=== PATIENT | male | born 1940 | race Caucasian/White ===

== ENCOUNTER 2018-08-07 10:19 | Outpatient (CLI) | payer MEDICARE ==
[2018-08-07 11:19] LABS: Estimated GFR-MDRD - POC Greater than 90
--- NOTE | 2018-08-07 12:20 | CT ---
CT Abdomen Pelvis W WO con: 08/07/2018 12:00 AM CLINICAL HISTORY: Hematuria. TECHNIQUE: Multiple contiguous axial images were obtained and a CT of the abdomen and pelvis without and with IV contrast. Postcontrast images were obtained in the nephrographic and excretory phases. Sagittal and coronal reformats were performed. COMPARISON: None. FINDINGS: Kidneys and Urinary Tract: Right kidney and ureter: No calculi. No hydronephrosis or hydroureter. No renal mass or other lesions . No urothelial lesions: no filling defect, dilation, stricture or wall thickening. Left kidney and ureter: No calculi. No hydronephrosis or hydroureter. No renal mass or other lesions. No urothelial lesions: no filling defect, dilation, stricture or wall thickening. Urinary bladder: Normal, no calculi, mass or other lesions. Remainder of Abdomen and Pelvis: Liver: Normal. Gallbladder and biliary system: Normal. No CT evident gallstones. No biliary ductal dilatation. Spleen: Normal. Pancreas: Normal. Adrenal glands: Normal. GI tract: Scattered diverticula in the colon. The small bowel is normal. Abdominal aorta and its major branches: Atherosclerotic calcifications. No aneurysm. Peritoneum/retroperitoneum: Normal. No ascites. No adenopathy. Pelvic structures: Normal. No pelvic lymphadenopathy. Body wall and musculoskeletal: Degenerative changes in the spine. Visualized lower thorax: Normal. No pulmonary parenchymal mass or pleural effusion. IMPRESSION: 1. Negative CT Urogram. No etiology identified for hematuria. 2. Diverticulosis
[2018-08-07] MEDS ORDERED: ISOVUE-370 76%-LOCM 1 ML ONE (13:43)
== END 2018-08-07 10:20 | disposition home or self-care (01) ==
LOC: BICCT 10:19
PROVIDERS: ATTEND Urology
DX: R31.9 Hematuria, unspecified (principal); K57.90 Diverticulosis of intestine, part unspecified, without perforation or abscess without bleeding
CPT/HCPCS: 74178; 82565; Q9966

== ENCOUNTER 2020-01-21 07:57 | Outpatient (CLI) | payer MEDICARE, OTHER ==
[2020-01-21 14:24] LABS: #Eosinphils 0.2 thou/uL (0.0-0.7); #Lymphocytes 1.8 thou/uL (1.20-3.40); #Monocytes 0.7 thou/uL (0.11-0.59); #Neutrophils 4.5 thou/uL (1.40-6.50); %Basophils 0.1 % (0.0-1.0); %Eosinophils 3.1 % (0.0-10.0); %Lymphocytes 24.6 % (21.0-51.0); %Monocytes 9.8 % (0.0-10.0); %Neutrophils 62.3 % (42.0-75.0); Hemoglobin 15.2 g/dL (14.0-18.0); Mean Corpuscular HGB CONC 33.7 g/dL (32.0-36.0); Mean Corpuscular Hemoglobin 32.5 pg (27.0-31.0); Mean Corpuscular Volume 96.4 fL (78.0-98.0); Mean Platelet Volume 7.7 fL (7.4-10.4); Platelet Count 241 thou/uL (130-400); RBC Distribution Width 11.8 % (11.5-14.5); Red Blood Cell (RBC) Count 4.67 mill/uL (4.70-6.10); White Blood Cell (WBC) Count 7.3 thou/uL (4.8-10.8)
[2020-01-21 14:43] LABS: Anion Gap 14 mmol/L (10-20); BUN (Urea Nitrogen) 17 mg/dL (8.4-25.7); Calc. Creatinine Clearance 0 mL/min (70-130); Carbon Dioxide 24 mmol/L (23-31); Chloride 107 mmol/L (98-107); Estimated GFR-MDRD 81; Glucose 81 mg/dL (83-110); Potassium 4.9 mmol/L (3.5-5.1); Sodium 140 mmol/L (136-145)
[2020-01-22 13:02] LABS: SARS-CoV-2 MS2 Positive; SARS-CoV-2 N Gene Negative; SARS-CoV-2 S Gene Negative; SARS-CoV-2 by NAA Not Detected (NotDetected); SARS-CoV-2 orf1ab Negative
== END 2020-01-21 07:58 | disposition home or self-care (01) ==
LOC: LABBT 07:57
PROVIDERS: ATTEND Internal Medicine Cardiovascular Disease
DX: Z01.812 Encounter for preprocedural laboratory examination (principal); Z20.828 Contact with and (suspected) exposure to other viral communicable diseases; R93.89 Abnormal findings on diagnostic imaging of other specified body structures
CPT/HCPCS: 80048; 85025; U0003; 87635

== ENCOUNTER 2020-01-24 05:51 | Day surgery (SDC) | payer MEDICARE ==
[2020-01-22 13:46] VITALS: BMI 28.1
[2020-01-24] MEDS ORDERED: Heparin 10,000 UNITS/ 10 ML VIAL ONE (06:27)
[2020-01-24] MEDS ORDERED: Lidocaine 1% (PF) 30 ML VIAL ONE (06:38)
[2020-01-24] MEDS ORDERED: Fentanyl 100 MCG/2 ML VIAL ONE (06:58)
[2020-01-24] MEDS ORDERED: Midazolam HCl 2 mg/2 ml Vial ONE (06:58)
[2020-01-24] MEDS ORDERED: Bivalirudin 250 MG VIAL ONE (07:33)
[2020-01-24] MEDS ORDERED: Clopidogrel Bisulfate 300 MG TAB ONE (07:43)
[2020-01-24] MEDS ORDERED: Morphine 4 MG/ML VIAL SLOW IVP PRN (12:13)
[2020-01-24] MEDS ORDERED: Morphine 2 MG/ML VIAL SLOW IVP PRN (12:13)
[2020-01-24] MEDS ORDERED: Sodium Chloride 0.9% 1,000 ML IV SCH (12:13)
[2020-01-24] MEDS ORDERED: Iopamidol 370 76% 50 ML VIAL FS ONE (14:06)
[2020-01-24] MEDS ORDERED: Iopamidol 370 76% 100 ML VIAL ONE (14:06)
[2020-01-24] MEDS ORDERED: Clopidogrel Bisulfate 75 MG TAB ONE (14:22)
[2020-01-25] MEDS ORDERED: Aspirin Chewable 81 MG TAB PO SCH (09:00)
[2020-01-25] MEDS ORDERED: Clopidogrel Bisulfate 75 MG TAB PO SCH (09:00)
--- NOTE | 2020-01-26 16:08 | EKG ---
Test Reason : POST STENT Blood Pressure : / mmHG Vent. Rate : 049 BPM Atrial Rate : 049 BPM P-R Int : 238 ms QRS Dur : 092 ms QT Int : 448 ms P-R-T Axes : 003 020 046 degrees QTc Int : 404 ms Marked sinus bradycardia with 1st degree A-V block Abnormal ECG No previous ECGs available Confirmed by Nicholas LYNNE ([id number]) on 01/26/2020 4:07:39 PM Referred By: MERON Confirmed By:Nicholas LYNNE
== END 2020-01-24 17:52 | disposition home or self-care (01) ==
LOC: CCL 05:51
PROVIDERS: ATTEND Internal Medicine Cardiovascular Disease
PROC: 027034Z Dilation of Coronary Artery, One Artery with Drug-eluting Intraluminal Device, Percutaneous Approach (ICD-10-PCS; principal; 2020-01-24)
PROC: 4A023N7 Measurement of Cardiac Sampling and Pressure, Left Heart, Percutaneous Approach (ICD-10-PCS; 2020-01-24)
PROC: B2111ZZ Fluoroscopy of Multiple Coronary Arteries using Low Osmolar Contrast (ICD-10-PCS; 2020-01-24)
PROC: B2131ZZ Fluoroscopy of Multiple Coronary Artery Bypass Grafts using Low Osmolar Contrast (ICD-10-PCS; 2020-01-24)
DX: T82.855A Stenosis of coronary artery stent, initial encounter (principal); I25.810 Atherosclerosis of coronary artery bypass graft(s) without angina pectoris; I25.10 Atherosclerotic heart disease of native coronary artery without angina pectoris; I25.82 Chronic total occlusion of coronary artery; E78.5 Hyperlipidemia, unspecified; E78.00 Pure hypercholesterolemia, unspecified; I10 Essential (primary) hypertension; I48.0 Paroxysmal atrial fibrillation; Z87.891 Personal history of nicotine dependence; Z79.02 Long term (current) use of antithrombotics/antiplatelets; Z79.82 Long term (current) use of aspirin; Z79.899 Other long term (current) drug therapy; Z95.1 Presence of aortocoronary bypass graft; Z95.5 Presence of coronary angioplasty implant and graft
CPT/HCPCS: 85347; 92928; 93005; 93010; 93458; 99152; 99153; C1874; C9600; J0583; J1644; J2001; J2250; J2270; J3010; Q9967